=== PATIENT | female | born 1990 | race Caucasian/White ===

== ENCOUNTER → 2021-08-18 | Outpatient (CLI) | payer BC, OTHER ==
--- NOTE | 2021-08-18 14:52 | Diagnostic Imaging Report ---
INDICATION: Right knee pain. FINDINGS: 3 views. Joint spaces well maintained. Articulating surfaces are smooth. Patellofemoral joint shows good alignment. No fractures. No hypertrophic bony changes. No soft tissue calcification. IMPRESSION: Normal right knee. Dictated by: Dictated on workstation # [id number]
== END ==
LOC: RAD 11:19
PROVIDERS: ATTEND Nurse Practitioner Family
DX: M25.561 Pain in right knee (principal)
CPT/HCPCS: 73562

== ENCOUNTER → 2021-09-02 | Outpatient (CLI) | payer BC ==
--- NOTE | 2021-09-02 11:32 | Diagnostic Imaging Report ---
PROCEDURE: MRI right joint lower extremity without contrast. TECHNIQUE: Multiplanar, multisequence non contrast-enhanced MRI of the right lower extremity was accomplished. INDICATION: Fall, right knee pain. EXAMINATION: Right knee MRI without contrast 09/02/2021 FINDINGS: The extensor mechanism is intact. The ACL and PCL intact. The MCL and the lateral collateral ligamentous complex intact. The medial meniscus demonstrates undersurface fraying and a small tear along the anterior horn. The lateral meniscus is intact. Cartilage in the medial and lateral joint compartments appears maintained. There is moderate heterogeneity of the cartilage overlying the patella with subchondral cystic change in the patella. There is a small underlying joint effusion. IMPRESSION: 1. Small tear involving the undersurface of the anterior horn of the medial meniscus. Lateral meniscus intact. 2. Patellofemoral degenerative findings. Dictated by: Dictated on workstation # [id number]
== END ==
LOC: RAD 10:15
PROVIDERS: ATTEND Nurse Practitioner Family
DX: S83.241A Other tear of medial meniscus, current injury, right knee, initial encounter (principal); M17.11 Unilateral primary osteoarthritis, right knee; W19.XXXA Unspecified fall, initial encounter
CPT/HCPCS: 73721